=== PATIENT | female | born 1995 | race Caucasian/White ===

== ENCOUNTER 2018-08-25 23:30 | Inpatient (IN) | payer OTHER ==
[2018-08-26] MEDS ORDERED: METHYLERGONOVINE 0.2 MG INJ IM (00:30)
[2018-08-26] MEDS ORDERED: CARBOPROST 250 MCG INJ IM (00:30)
[2018-08-26] MEDS ORDERED: MISOPROSTOL 200 MCG TAB PR (00:30)
[2018-08-26] MEDS ORDERED: LIDOCAINE 1% (MPF) 30 ML INJ INJ (00:30)
[2018-08-26] MEDS ORDERED: OXYTOCIN 30 UNITS/LR 500 ML IV ×2 (00:30)
[2018-08-26 00:44] LABS: ADD MAN DIFF? NO
[2018-08-26 00:47] LABS: WHITE BLOOD COUNT 10.3 10^3/ul (4.8-10.8)
[2018-08-26 00:47] LABS: BASOPHILS % 0.1 % (0.0-2.0); EOSINOPHILS # 0.1 10^3/ul (0.0-0.5); EOSINOPHILS % 0.7 % (0.0-7.0); HEMATOCRIT 35.9 % (37.0-47.0); HEMOGLOBIN 12.2 g/dl (12.0-16.0); LYMPHOCYTES # 2.3 10^3/ul (0.8-2.9); LYMPHOCYTES % 21.8 % (15.0-51.0); MEAN CORPUSCULAR HEMOGLOBIN 32.1 pg (29.0-33.0); MEAN CORPUSCULAR VOLUME 94.5 fl (82.0-101.0); MEAN PLATELET VOLUME 10.7 fl (7.4-10.4); MONOCYTE # 0.9 10^3/ul (0.3-0.9); MONOCYTES % 8.3 % (0.0-11.0); NEUTROPHIL # 7.1 10^3/ul (1.6-7.5); NEUTROPHILS % 68.7 % (39.0-77.0); PLATELET COUNT 196 10^3/UL (140-415); RED CELL DISTRIBUTION WIDTH 11.9 % (11.5-14.5)
[2018-08-26 01:01] LABS: INR 0.88; PT RATIO 0.9
[2018-08-26 01:02] LABS: PARTIAL THROMBOPLASTIN TIME 31.3 Sec (23.0-35.0)
[2018-08-26 01:03] LABS: ALANINE AMINOTRANSFERASE 13 IU/L (13-69); ALBUMIN 3.3 g/dl (3.3-4.9); ALKALINE PHOSPHATASE 132 IU/L (42-121); ANION GAP 9 (5-13); ASPARTATE AMINO TRANSFERASE 22 IU/L (15-46); BILIRUBIN,INDIRECT 0.4 mg/dl (0-1.1); BILIRUBIN,TOTAL 0.4 mg/dl (0.2-1.3); BLOOD UREA NITROGEN 10 mg/dl (7-20); CALCIUM 9.8 mg/dl (8.4-10.2); CARBON DIOXIDE 23 mmol/L (21-31); CHLORIDE 106 mmol/L (97-110); CREATININE 0.42 mg/dl (0.44-1.00); Estimated GFR > 60 mL/min (>60); GLUCOSE 80 mg/dl (70-220); POTASSIUM 3.9 mmol/L (3.5-5.1); SODIUM 138 mmol/L (135-144); TOTAL PROTEIN 6.6 g/dl (6.1-8.1)
[2018-08-26] MEDS: LACTATED RINGER'S 1,000 ML IV* ×5 (01:19→21:53)
[2018-08-26 01:31] LABS: URIC ACID 3.8 mg/dl (3.1-7.9)
[2018-08-26 01:34] LABS: HEPATITIS B SURFACE ANTIGEN NEGATIVE (NEGATIVE)
[2018-08-26] MEDS ORDERED: LIDOCAINE 0.5% (SDV) 50 ML INJ INJ (02:00)
[2018-08-26 05:44] LABS: ADD UMIC NO; UR ASCORBIC ACID NEGATIVE (NEGATIVE); UR BACTERIA FEW /HPF (NONE SEEN); UR BILIRUBIN (Dip) NEGATIVE (NEGATIVE); UR BLOOD (Dip) NEGATIVE (NEGATIVE); UR CLARITY SLIGHTLY CLOUDY (CLEAR); UR COLOR YELLOW (YELLOW); UR GLUCOSE (Dip) NEGATIVE (NEGATIVE); UR KETONES (Dip) 1+ mg/dL (NEGATIVE); UR LEUKOCYTE ESTERASE (Dip) NEGATIVE Leu/ul (NEGATIVE); UR NITRITE (Dip) NEGATIVE (NEGATIVE); UR RBC 1 /HPF (0-5); UR SPECIFIC GRAVITY (Dip) 1.009 (1.003-1.030); UR SQUAMOUS EPITHELIAL CELL FEW /HPF (FEW); UR TOTAL PROTEIN (Dip) NEGATIVE (NEGATIVE); UR UROBILINOGEN (Dip) NEGATIVE (NEGATIVE); UR WBC 1 /HPF (0-5)
[2018-08-26] MEDS: DINOPROSTONE 10 MG VAG SUPP VAG (07:46)
[2018-08-26] MEDS: BUTORPHANOL 2 MG INJ IV ×2 (15:19→19:09)
[2018-08-26 16:16] LABS: RAPID PLASMA REAGIN NONREACTIVE (NR)
[2018-08-26] MEDS ORDERED: FENTAnyl 2MCG/ML-ROPIV 0.2% 100 ML (20:45)
[2018-08-26] MEDS ORDERED: NALOXONE (0.4 MG/ML) INJ IV (21:00)
[2018-08-27] MEDS: LACTATED RINGER'S 1,000 ML IV* (03:03)
[2018-08-27] MEDS: FENTAnyl 2MCG/ML-ROPIV 0.2% 100 ML BAG EPI (05:30)
[2018-08-27] MEDS ORDERED: CEFAZOLIN 2 GM/50 ML (PMX) 50 ML IVPB (09:18)
[2018-08-27] MEDS ORDERED: LIDOCAINE 1.5%/EPI MPF (SDV) 30 ML VIAL (09:23)
[2018-08-27] MEDS ORDERED: morphine SULFATE/PF (10 MG/10 ML) INJ (09:24)
[2018-08-27] MEDS ORDERED: OXYTOCIN 10 UNIT INJ (09:24)
[2018-08-27] MEDS ORDERED: ONDANSETRON 4 MG INJ (09:28)
[2018-08-27] MEDS ORDERED: METOCLOPRAMIDE 10 MG INJ (09:28)
[2018-08-27] MEDS ORDERED: CARBOPROST 250 MCG INJ IM ×2 (09:30→15:00)
[2018-08-27] MEDS ORDERED: CEFAZOLIN 2 GM/50 ML (PMX) 50 ML IV (09:30)
[2018-08-27] MEDS ORDERED: MISOPROSTOL 200 MCG TAB PR ×2 (09:30→15:00)
[2018-08-27] MEDS ORDERED: OXYTOCIN 30 UNITS/LR 500 ML IV ×2 (09:30→15:00)
[2018-08-27] MEDS ORDERED: METHYLERGONOVINE 0.2 MG INJ IM ×2 (09:30→15:00)
[2018-08-27] MEDS: METOCLOPRAMIDE 10 MG INJ IV (09:33)
[2018-08-27] MEDS: ONDANSETRON 4 MG INJ IV (09:33)
[2018-08-27] MEDS: FAMOTIDINE 20 MG INJ IV (09:33)
[2018-08-27] MEDS ORDERED: DIPHENHYDRAMINE 50 MG INJ IV ×2 (10:00)
[2018-08-27] MEDS ORDERED: NALOXONE (0.4 MG/ML) INJ IV ×2 (10:00)
[2018-08-27] MEDS ORDERED: FENTAnyl 50 MCG/ML VIAL IV ×2 (10:00)
[2018-08-27] MEDS ORDERED: HYDROmorphONE 1 MG/5 ML IV SYRINGE IV ×3 (10:00)
[2018-08-27] MEDS ORDERED: KETOROLAC 30 MG INJ IV (10:00)
[2018-08-27] MEDS ORDERED: ZOLPIDEM 5 MG TAB PO (10:00)
[2018-08-27] MEDS ORDERED: HYDROmorphONE 0.5 MG/0.5 ML SYG IV (10:00)
[2018-08-27] MEDS ORDERED: ONDANSETRON 4 MG INJ IV ×2 (10:00)
[2018-08-27] MEDS: OXYTOCIN 30 UNITS/LR 500 ML IV ×4 (10:57→20:37)
[2018-08-27 11:24] LABS: ADD MAN DIFF? NO
[2018-08-27 11:27] LABS: WHITE BLOOD COUNT 19.2 10^3/ul (4.8-10.8)
[2018-08-27 11:27] LABS: BASOPHILS % 0.1 % (0.0-2.0); HEMOGLOBIN 11.4 g/dl (12.0-16.0); LYMPHOCYTES # 1.1 10^3/ul (0.8-2.9); LYMPHOCYTES % 5.5 % (15.0-51.0); MEAN CORPUSCULAR HEMOGLOBIN 32.7 pg (29.0-33.0); MEAN CORPUSCULAR HGB CONC 33.5 g/dl (32.0-37.0); MEAN CORPUSCULAR VOLUME 97.4 fl (82.0-101.0); MEAN PLATELET VOLUME 10.6 fl (7.4-10.4); MONOCYTE # 1.2 10^3/ul (0.3-0.9); MONOCYTES % 6.4 % (0.0-11.0); NEUTROPHIL # 16.8 10^3/ul (1.6-7.5); NEUTROPHILS % 87.5 % (39.0-77.0); PLATELET COUNT 167 10^3/UL (140-415); RED BLOOD COUNT 3.49 10^6/ul (4.20-5.40); RED CELL DISTRIBUTION WIDTH 12.3 % (11.5-14.5)
[2018-08-27 11:47] LABS: INR 1.03; PARTIAL THROMBOPLASTIN TIME 31.2 Sec (23.0-35.0); PROTIME 13.6 Sec (11.9-14.9); PT RATIO 1.1
[2018-08-27] MEDS ORDERED: HYDROCODONE/APAP (5/325) TAB PO (15:00)
[2018-08-27] MEDS ORDERED: OXYCODONE/ACETAMINOPHEN (5/325) TAB PO ×2 (15:00)
[2018-08-27 15:25] LABS: RAPID PLASMA REAGIN NONREACTIVE (NR)
[2018-08-27] MEDS: CEFAZOLIN 1 GM/50 ML (PMX) 50 ML IVPB (18:25)
[2018-08-27] MEDS: LANOLIN 7 GM TUBE TOP (20:36)
[2018-08-27] MEDS: SENNA/DOCUSATE NA (8.6MG/50MG) TAB PO (20:36)
[2018-08-27] MEDS: HYDROmorphONE 0.5 MG/0.5 ML SYG IV (23:40)
[2018-08-28] MEDS: LACTATED RINGER'S 1,000 ML IV ×2 (01:30→08:45)
[2018-08-28] MEDS: OXYTOCIN 30 UNITS/LR 500 ML IV ×6 (02:59→19:32)
[2018-08-28] MEDS: SENNA/DOCUSATE NA (8.6MG/50MG) TAB PO ×2 (08:40→21:13)
[2018-08-28 08:45] LABS: ADD MAN DIFF? NO
[2018-08-28 08:51] LABS: BASOPHILS % 0.2 % (0.0-2.0); EOSINOPHILS % 0.2 % (0.0-7.0); HEMATOCRIT 31.3 % (37.0-47.0); HEMOGLOBIN 10.5 g/dl (12.0-16.0); LYMPHOCYTES # 1.4 10^3/ul (0.8-2.9); LYMPHOCYTES % 8.2 % (15.0-51.0); MEAN CORPUSCULAR HEMOGLOBIN 32.3 pg (29.0-33.0); MEAN CORPUSCULAR HGB CONC 33.5 g/dl (32.0-37.0); MEAN CORPUSCULAR VOLUME 96.3 fl (82.0-101.0); MEAN PLATELET VOLUME 10.9 fl (7.4-10.4); MONOCYTES % 5.6 % (0.0-11.0); NEUTROPHIL # 14.7 10^3/ul (1.6-7.5); NEUTROPHILS % 85.5 % (39.0-77.0); PLATELET COUNT 153 10^3/UL (140-415); RED BLOOD COUNT 3.25 10^6/ul (4.20-5.40)
[2018-08-28 08:51] LABS: WHITE BLOOD COUNT 17.2 10^3/ul (4.8-10.8)
[2018-08-28] MEDS: HYDROCODONE/APAP (5/325) TAB PO ×2 (10:33→23:26)
[2018-08-28] MEDS: IBUPROFEN 600 MG TAB PO ×2 (12:11→18:24)
[2018-08-29] MEDS: IBUPROFEN 600 MG TAB PO ×5 (00:13→23:38)
[2018-08-29] MEDS: OXYTOCIN 30 UNITS/LR 500 ML IV ×4 (04:06→14:59)
[2018-08-29] MEDS: HYDROCODONE/APAP (5/325) TAB PO ×2 (07:27→19:59)
[2018-08-29 08:29] LABS: ADD MAN DIFF? NO
[2018-08-29 08:36] LABS: WHITE BLOOD COUNT 10.3 10^3/ul (4.8-10.8)
[2018-08-29 08:36] LABS: BASOPHILS % 0.2 % (0.0-2.0); EOSINOPHILS # 0.2 10^3/ul (0.0-0.5); EOSINOPHILS % 1.5 % (0.0-7.0); HEMOGLOBIN 9.9 g/dl (12.0-16.0); LYMPHOCYTES # 1.7 10^3/ul (0.8-2.9); LYMPHOCYTES % 16.4 % (15.0-51.0); MEAN CORPUSCULAR HEMOGLOBIN 32.5 pg (29.0-33.0); MEAN CORPUSCULAR VOLUME 98.4 fl (82.0-101.0); MONOCYTE # 0.7 10^3/ul (0.3-0.9); MONOCYTES % 6.3 % (0.0-11.0); NEUTROPHIL # 7.7 10^3/ul (1.6-7.5); PLATELET COUNT 170 10^3/UL (140-415); RED BLOOD COUNT 3.05 10^6/ul (4.20-5.40)
[2018-08-29] MEDS: SENNA/DOCUSATE NA (8.6MG/50MG) TAB PO ×2 (08:44→21:29)
[2018-08-29] MEDS: NA PHOSPHATE/BIPHOS 133 ML ENEMA PR (11:23)
[2018-08-30] MEDS: IBUPROFEN 600 MG TAB PO ×2 (05:38→12:22)
[2018-08-30] MEDS: DIPHTH/TET/ACEL PERTUSS (ADULT) 0.5 ML VIAL IM* (09:00)
[2018-08-30] MEDS: SENNA/DOCUSATE NA (8.6MG/50MG) TAB PO (10:42)
[2018-08-30] MEDS: HYDROCODONE/APAP (5/325) TAB PO (10:43)
== END 2018-08-30 15:50 | disposition home or self-care (01) | DRG 788 ==
LOC: OBT 23:30 → L-D 08-27 09:40 → OBT 08-26 00:10 → L-D 08-27 11:12 → PP1 08-27 16:22
PROC: 10D00Z1 Extraction of Products of Conception, Low, Open Approach (ICD-10-PCS; principal; 2018-08-27 11:00)
DX: O48.0 Post-term pregnancy (principal); Z3A.40 40 weeks gestation of pregnancy; O76 Abnormality in fetal heart rate and rhythm complicating labor and delivery; O62.0 Primary inadequate contractions; Z37.0 Single live birth
CPT/HCPCS: 62319; 76815; 80053; 81001; 81003; 84560; 85025; 85610; 85730; 86592; 86850; 86900; 86901; 87340; 90715